=== PATIENT | female | born 1990 | race American Indian/Alaskan Native ===

== ENCOUNTER 2018-02-20 09:11 | Emergency (ER) | payer SELFPAY ==
[2018-02-20 09:24] VITALS: BP 128/81
[2018-02-20] MEDS ORDERED: TORADOL IM ONE (09:51)
--- NOTE | 2018-02-20 09:51 | Emergency Department Report ---
Upper Extremity - HPI Chief Complaint: Shoulder Injury Stated Complaint: RIGHT SHOULDER PAIN Time Seen by Provider: 02/20/18 09:51 Upper Extremity: Right Shoulder (pain) Occurred When: >5 Days (3 weeks) Mechanism: Unsure Severity: moderate (6/10) Symptoms: Yes Pain with Movement (right shoulder 6/10 and achy), No Deformity, No Limited Range of Movement, No Numbness, No Weakness, No Swelling, No Bruising /Ecchymosis, No Laceration or Abrasion Other History: Patient here for right shoulder pain for 3 weeks. 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 She is unsure of injury that says that she's been taking ibuprofen which did not help. Pain is located to right shoulder joint and achy worse with movement and better at rest. Pain 6 out of 10. She says she took ibuprofen last night ED Review of Systems ROS: Stated complaint: RIGHT SHOULDER PAIN Other details as noted in HPI Constitutional: denies: chills, fever ENT: denies: ear pain, throat pain, congestion Respiratory: denies: cough, orthopnea, shortness of breath, SOB with exertion, SOB at rest, stridor, wheezing Cardiovascular: denies: chest pain, palpitations, dyspnea on exertion, edema, syncope Gastrointestinal: denies: abdominal pain, nausea, vomiting Genitourinary: denies: hematuria Musculoskeletal: arthralgia. denies: back pain, joint swelling, myalgia Skin: denies: rash, lesions Neurological: denies: headache, weakness, numbness, paresthesias, abnormal gait , vertigo Psychiatric: depression ED Past Medical Hx - Past Medical History Previous Medical History?: No - Surgical History Past Surgical History?: No - Family History Family history: asthma - Social History Smoking Status: Never Smoker Substance Use Type: Alcohol Other Social History: single, works - Medications Home Medications: Home Medications Medication Instructions Recorded Confirmed Last Taken Type Ibuprofen [Motrin] 800 mg PO Q8HR PRN #12 tablet 02/20/18 Unknown Rx Upper Extremity Exam - Exam General: Vital signs noted. No distress. Alert and acting appropriately. This is a 27-year-old female well-nourished well-developed in no acute distress. Head and Torso: No HEENT Abnormality, No Neck Tenderness, No Chest/Lungs Abnormality (clear to auscultate bilaterally), No Abdominal Tenderness, No Back Tenderness Shoulder Exam: Yes Normal Range of Motion in Shoulder (normal range of motion), No Shoulder Tenderness, No Clavicle Tenderness, No Shoulder Deformity, No AC Joint Tenderness Arm Exam: No Arm/Humerus Tenderness, No Arm Deformity Elbow: Yes Normal Range of Motion in Elbow, No Elbow Tenderness, No Elbow Deformity Forearm: No Forearm Tenderness, No Forearm Deformity, No Pain with Pronation, No Pain with Supination Wrist: Yes Normal ROM in Wrist (full range of motion), No Wrist Tenderness, No Wrist Deformity, No Snuffbox Tenderness, No Pain with Axial Thumb Compression Hand: Yes Normal ROM in Digit(s) (full range of motion), No Hand Tenderness, No Hand Deformity, No Digit Tenderness, No Digit(s) Deformity, No Tendon Dysfunction CMS Exam: Yes Normal Distal Pulses (+2 pulses to all extremities), Yes Normal Capillary Refill (no clubbing, cyanosis or edema.), Yes Normal Distal Sensation ( good ,color, sensation, temperature and movement to her extremities), No Broken Skin ED Course Vital Signs 02/20/18 09:20 Temperature 99 F Pulse Rate 72 Respiratory 16 Rate Blood Pressure 128/81 O2 Sat by Pulse 99 Oximetry - Reevaluation(s) Reevaluation #1: 02/20/18 10:02 Patient given Toradol 60 mg IM which relieved her shoulder pain. ED Medical Decision Making - Radiology Data Radiology results: report reviewed, image reviewed interpreted by me: X-rays two-view right shoulder reveals no acute findings X-ray of the right shoulder: See below Patient: JOSE CHAKRABORTY MR#: [id number] : 1990 Acct:[id number] Age/Sex: 27 / F ADM Date: 02/20/18 Loc: ED Attending Dr: Ordering Physician: MALICK FONTAINE MD Date of Service: 02/20/18 Procedure(s): XR shoulder 2+V RT Accession Number(s): [id number] cc: MALICK FONTAINE MD Fluoro Time In Minutes: RIGHT SHOULDER: Injury, pain. Routine views demonstrate normal bony and soft tissue structures with normal joint alignment of the shoulder. IMPRESSION: Normal study. Transcribed By: [facility] Dictated By: JAIRO ISLAS MD Electronically Authenticated By: JAIRO ISLAS MD Signed Date/Time: 02/20/181212 DD/ 11 TD/TT: 02/20/181212 - Medical Decision Making ED Course: DX: Arthralgia right shoulder X-ray of right shoulder reveals no acute fracture dislocation and no soft tissue swelling. Please refer to radiology report for detailed information -Toradol 60 mg IM given in emergency room which relieved her pain. -Referral to orthopedic doctor -Patient will be given a prescription for anti-inflammatory -Explanation for ice therapy -No lifting more than 5 pounds over the next 3 days Patient discharged home in stable condition to follow up with orthopedic doctor if she continues to have right shoulder pain. I gave her information on diagnosis, treatment plan and needed follow-up. She voiced understanding the discharge instructions patient discharged home in stable condition with prescription for Motrin. Critical care attestation.: If time is entered above; I have spent that time in minutes in the direct care of this critically ill patient, excluding procedure time. ED Disposition Clinical Impression: Arthralgia of shoulder region, right Disposition: [id number]-01 TO HOME OR SELFCARE Is pt being admited?: No Does the pt Need Aspirin: No Condition: Stable Instructions: Arthralgia (ED) Additional Instructions: See discharge instruction in [place] therapy Right shoulder for 72 hours No lifting for 72 hours Follow up with orthopedic doctor regarding shoulder pain for 3 weeks. See referral information and discharged instruction paperwork Take Motrin as prescribed for pain. Take with food Prescriptions: Ibuprofen [Motrin] 800 mg PO Q8HR PRN #12 tablet PRN Reason: shoulder pain Referrals: JAIRO HARDEN MD [Staff Physician] - 2-3 Days Forms: Work/School Release Form(ED)
--- NOTE | 2018-02-20 12:34 | XRay Report ---
RIGHT SHOULDER: Injury, pain. Routine views demonstrate normal bony and soft tissue structures with normal joint alignment of the shoulder. IMPRESSION: Normal study.
== END 2018-02-20 11:48 | disposition home or self-care (01) ==
LOC: ED 09:11
DX: M25.511 Pain in right shoulder (principal)
CPT/HCPCS: 73030; 96372; 99283; J1885

== ENCOUNTER 2019-04-02 03:14 | Emergency (ER) | payer MEDICAID ==
[2019-04-02 04:23] LABS: Basophils % (Auto) 0.1 % (0.0-1.8); Hematocrit 32.9 % (30.3-42.9); Lymphocytes # (Auto) 1.3 K/mm3 (1.2-5.4); Lymphocytes % (Auto) 8.9 % (13.4-35.0); Mean Corpuscular HGB Conc 34 % (30-34); Mean Corpuscular Volume 84 fl (79-97); Monocytes # (Auto) 1.7 K/mm3 (0.0-0.8); Monocytes % (Auto) 12.2 % (0.0-7.3); Platelet Count 326 K/mm3 (140-440); Red Blood Count 3.91 M/mm3 (3.65-5.03); Red Cell Distribution Width 13.3 % (13.2-15.2)
[2019-04-02 05:15] LABS: Bacteria,Urine 3+ /HPF (Negative); Bilirubin,Urine NEG (Negative); Blood,Urine SM (Negative); Color,Urine Amber (Yellow); Mucus,Urine FEW /HPF; Urobilinogen,Urine < 2.0 mg/dL (<2.0)
[2019-04-02 05:20] LABS: WBC,Urine > 182.0 /HPF (0.0-6.0)
[2019-04-02] MEDS ORDERED: REGLAN IV ONE (05:23)
[2019-04-02] MEDS ORDERED: NACL 0.9% 1000 ML 1,000 ML IV ONE (05:23)
[2019-04-02] MEDS ORDERED: ROCEPHIN/NS 1 GM/50 ML 1 GM/50 ML BAG IV ONE (05:23)
[2019-04-02] MEDS ORDERED: BENADRYL IV ONE (05:23)
--- NOTE | 2019-04-02 05:32 | Emergency Department Report ---
ED Female HPI - General Chief complaint: Nausea/Vomiting/Diarrhea Stated complaint: 9WKS VOMITING/CHILLS/FEVER Time Seen by Provider: 04/02/19 05:15 Source: patient Mode of arrival: Ambulatory Limitations: No Limitations - History of Present Illness Initial comments: Patient is a 28-year-old female who presents to the emergency room complaints of left lower back pain that began a week ago. Patient had associated dysuria and nausea/vomiting. She states she had one episode of emesis today and one episode yesterday. Denies any vaginal bleeding or vaginal discharge. She is currently 15 weeks . states she took Azo [id number] for a UTI without much relief. She denies allergies to medications. PMHx of anemia. States she is amilcar ing a daily vitamin. OB: [facility], has had first US. - Related Data Previous Rx's Medication Instructions Recorded Last Taken Type Ibuprofen [Motrin] 800 mg PO Q8HR PRN #12 tablet 02/20/18 Unknown Rx Nitrofurantoin Sevier/M-Cryst 100 mg PO BID 7 Days #14 capsule 04/02/19 Unknown Rx [Macrobid CAP] Allergies Allergy/AdvReac Type Severity Reaction Status Date / Time No Known Allergies Allergy Unverified 02/20/18 09:20 ED Review of Systems ROS: Stated complaint: 9WKS VOMITING/CHILLS/FEVER Other details as noted in HPI Comment: All other systems reviewed and negative ED Past Medical Hx - Past Medical History Previous Medical History?: No - Surgical History Past Surgical History?: No - Social History Smoking Status: Never Smoker Substance Use Type: None - Medications Home Medications: Home Medications Medication Instructions Recorded Confirmed Last Taken Type Ibuprofen [Motrin] 800 mg PO Q8HR PRN #12 tablet 02/20/18 Unknown Rx Nitrofurantoin Sevier/M-Cryst 100 mg PO BID 7 Days #14 capsule 04/02/19 Unknown Rx [Macrobid CAP] ED Physical Exam - General Limitations: No Limitations General appearance: alert, in no apparent distress - Head Head exam: Present: atraumatic, normocephalic - Eye Eye exam: Present: normal appearance, PERRL - ENT ENT exam: Present: mucous membranes moist - Respiratory Respiratory exam: Present: normal lung sounds bilaterally. Absent: respiratory distress, wheezes, rales, rhonchi, stridor, chest wall tenderness, accessory muscle use, decreased breath sounds, prolonged expiratory - Cardiovascular Cardiovascular Exam: Present: normal rhythm, tachycardia, normal heart sounds. Absent: systolic murmur, diastolic murmur, rubs, gallop - GI/Abdominal GI/Abdominal exam: Present: soft, normal bowel sounds, other (gravid). Absent: tenderness, guarding, rebound, rigid - Back Exam Back exam: Absent: CVA tenderness (R), CVA tenderness (L) - Neurological Exam Neurological exam: Present: alert, oriented X3 - Psychiatric Psychiatric exam: Present: normal affect, normal mood - Skin Skin exam: Present: warm, dry, intact ED Course Vital Signs 04/02/19 04/02/19 03:36 07:09 Temperature 99.2 F 99.0 F Pulse Rate 117 H 107 H Respiratory 18 18 Rate Blood Pressure 119/78 Blood Pressure 103/61 [Right] O2 Sat by Pulse 100 99 Oximetry ED Medical Decision Making - Lab Data Result diagrams: 04/02/19 03:47 Lab Results 04/02/19 04/02/19 04/02/19 Range/Units 03:47 03:47 03:47 WBC 14.3 H (4.5-11.0) K/mm3 RBC 3.91 (3.65-5.03) M/mm3 Hgb 11.0 (10.1-14.3) gm/dl Hct 32.9 (30.3-42.9) % MCV 84 (79-97) fl MCH 28 (28-32) pg MCHC 34 (30-34) % RDW 13.3 (13.2-15.2) % Plt Count 326 (140-440) K/mm3 Lymph % (Auto) 8.9 L (13.4-35.0) % Sevier % (Auto) 12.2 H (0.0-7.3) % Eos % (Auto) 0.0 (0.0-4.3) % Baso % (Auto) 0.1 (0.0-1.8) % Lymph # 1.3 (1.2-5.4) K/mm3 Sevier # 1.7 H (0.0-0.8) K/mm3 Eos # 0.0 (0.0-0.4) K/mm3 Baso # 0.0 (0.0-0.1) K/mm3 Seg Neutrophils % 78.8 H (40.0-70.0) % Seg Neutrophils # 11.2 H (1.8-7.7) K/mm3 HCG, Quant 08092 H (0-4) mIU/mL Urine Color (Yellow) Urine Turbidity (Clear) Urine pH (5.0-7.0) Ur Specific [place] (1.003-1.030) Urine Protein (Negative) mg/dL Urine Glucose (UA) (Negative) mg/dL Urine Ketones (Negative) mg/dL Urine Blood (Negative) Urine Nitrite (Negative) Urine Bilirubin (Negative) Urine Urobilinogen (<2.0) mg/dL Ur Leukocyte Esterase (Negative) Urine WBC (Auto) (0.0-6.0) /HPF Urine RBC (Auto) (0.0-6.0) /HPF U Epithel Cells (Auto) (0-13.0) /HPF Urine Bacteria (Auto) (Negative) /HPF Urine WBC Clumps /HPF Ur Transition Epith Cell /HPF Urine Mucus /HPF Blood Type O POSITIVE 04/02/19 Range/Units 04:30 WBC (4.5-11.0) K/mm3 RBC (3.65-5.03) M/mm3 Hgb (10.1-14.3) gm/dl Hct (30.3-42.9) % MCV (79-97) fl MCH (28-32) pg MCHC (30-34) % RDW (13.2-15.2) % Plt Count (140-440) K/mm3 Lymph % (Auto) (13.4-35.0) % Sevier % (Auto) (0.0-7.3) % Eos % (Auto) (0.0-4.3) % Baso % (Auto) (0.0-1.8) % Lymph # (1.2-5.4) K/mm3 Sevier # (0.0-0.8) K/mm3 Eos # (0.0-0.4) K/mm3 Baso # (0.0-0.1) K/mm3 Seg Neutrophils % (40.0-70.0) % Seg Neutrophils # (1.8-7.7) K/mm3 HCG, Quant (0-4) mIU/mL Urine Color Raeann (Yellow) Urine Turbidity Turbid (Clear) Urine pH 6.0 (5.0-7.0) Ur Specific [place] 1.010 (1.003-1.030) Urine Protein 100 mg/dl (Negative) mg/dL Urine Glucose (UA) Neg (Negative) mg/dL Urine Ketones 20 (Negative) mg/dL Urine Blood Sm (Negative) Urine Nitrite Neg (Negative) Urine Bilirubin Neg (Negative) Urine Urobilinogen < 2.0 (<2.0) mg/dL Ur Leukocyte Esterase Lg (Negative) Urine WBC (Auto) > 182.0 H (0.0-6.0) /HPF Urine RBC (Auto) 38.0 (0.0-6.0) /HPF U Epithel Cells (Auto) 1.0 (0-13.0) /HPF Urine Bacteria (Auto) 3+ (Negative) /HPF Urine WBC Clumps 3+ /HPF Ur Transition Epith Cell 2 /HPF Urine Mucus Few /HPF Blood Type - Radiology Data Radiology results: report reviewed PROCEDURE: US OB >= 14 WEEKS FETUS TECHNIQUE: Limited early second trimester transabdominal grayscale, color Doppler and M-mode obstetric ultrasound HISTORY: abdominal pain COMPARISONS: None FINDINGS: Single living intrauterine with recorded cardiac activity of 180 bpm and subjectively normal amniotic fluid volume. The cervix appears closed and measures 4 cm in length. Anterior placenta. Biparietal diameter is 2.9 cm Head circumference is 11.4 cm Abdominal circumference is 8 cm Femoral length is 1.6 cm Composited biometric measurements corresponds to estimated gestational age of 15 weeks 0 days and delivery date of 09/24/2019 IMPRESSION: Single living intrauterine with estimated gestational age of 15 weeks 0 days and delivery date of 09/24/2019. heart rate is near the upper limit of normal. Follow- up anatomy scan at 20 weeks gestational age is suggested. This document is electronically signed by Tashi Blue MD., April 02 2019 06:41:13 AM ET Transcribed By: JEREMY Dictated By: TASHI BLUE MD Electronically Authenticated By: TASHI BLUE MD Signed Date/Time: 04/02/19 0643 - Medical Decision Making Patient is a 28-year-old female who presents to the emergency room complaints of left lower back pain that began a week ago. Patient had associated dysuria and nausea/vomiting. She states she had one episode of emesis today and one episode yesterday. Denies any vaginal bleeding or vaginal discharge. She is currently 15 weeks . states she took Azo [id number] for a UTI without much relief. She denies allergies to medications. PMHx of anemia. States she is taking a daily vitamin. OB: [facility], has had first US. pt is afebrile. labs show elevated WBC at 14. UA shows evidence of UTI with many WBCs, leukocyte esterase. pt given reglan, benadryl, IVF, and ceftriaxone. US shows: Single living intrauterine with estimated gestational age of 15 weeks 0 days and delivery date of 09/24/2019. Fe deonna heart rate is near the upper limit of normal. Follow-up anatomy scan at 20 weeks gestational age is suggested. pt given prescription for macrobid. advised to take medication as prescribed. Drink plenty of water. Continue taking a daily vitamin. Follow-up with the primary care doctor and [employer] in next 2-3 days. Return to emergency room for any new or worsening symptoms. Critical care attestation.: If time is entered above; I have spent that time in minutes in the direct care of this critically ill patient, excluding procedure time. ED Disposition Clinical Impression: Qualifiers: Weeks of gestation: 15 weeks Qualified Code(s): Z3A.15 - 15 weeks gestation of UTI (urinary tract infection) Qualifiers: Urinary tract infection type: acute cystitis Hematuria presence: with hematuria Qualified Code(s): N30.01 - Acute cystitis with hematuria Disposition: - TO HOME OR SELFCARE Is pt being admited?: No Does the pt Need Aspirin: No Condition: Stable Instructions: Urinary Tract Infection in Women (ED) Additional Instructions: Please take medication as prescribed to completion. Drink plenty of water. Continue taking a daily vitamin. Follow-up with the primary care doct or and [employer] in next 2-3 days. Return to emergency room for any new or worsening symptoms. Prescriptions: Nitrofurantoin Sevier/M-Cryst [Macrobid CAP] 100 mg PO BID 7 Days #14 capsule Referrals: PRIMARY CARE, [Primary Care Provider] - 2-3 Days your, [employer] [Other] - 2-3 Days Time of Disposition: 06:57 Print Language: BURKINAN
--- NOTE | 2019-04-02 06:43 | Ultrasound Report ---
PROCEDURE: US OB >= 14 WEEKS FETUS TECHNIQUE: Limited early second trimester transabdominal grayscale, color Doppler and M-mode obstetr ic ultrasound HISTORY: abdominal pain COMPARISONS: None FINDINGS: Single living intrauterine with recorded cardiac activity of 180 bpm and subjectively baylee l amniotic fluid volume. The cervix appears closed and measures 4 cm in length. Anterior placenta. Biparietal diameter is 2.9 cm Head circumference is 11.4 cm Abdominal circumference is 8 cm Femoral length is 1.6 cm Composited biometric measurements corresponds to estimated gestational age of 15 weeks 0 days a nd delivery date of 09/24/2019 IMPRESSION: Single living intrauterine with estimated gestational age of 15 weeks 0 days and delivery d ate of 09/24/2019. heart rate is near the upper limit of normal. Follow-up anatomy scan at 20 w eeks gestational age is suggested. This document is electronically signed by Tashi Mccormick MD., April 02 2019 06:41:13 AM ET
[2019-04-02 07:09] VITALS: BP 103/61
== END 2019-04-02 07:41 | disposition home or self-care (01) ==
LOC: ED 03:14
DX: O23.42 Unspecified infection of urinary tract in pregnancy, second trimester (principal); Z3A.15 15 weeks gestation of pregnancy; Z79.899 Other long term (current) drug therapy
CPT/HCPCS: 36415; 76805; 81001; 84702; 85025; 86900; 86901; 96365; 96375; 99284; J0696; J1200; J2765; J7030